=== PATIENT | male | born 1990 ===

== ENCOUNTER 2018-07-22 08:41 | Emergency (ER) | payer BC ==
--- NOTE | 2018-07-22 08:49 | UC ---
Skin Complaint HPI - HPI Summary HPI Summary: 28 y/o male presents to the urgent care c/o tick bite on lateral side of abdomen he noticed this morning when he woke up. Pt was in the read yesterday. Unsure if it was engorged. He removed it. Pt denies fever, join pains, chest pain, palpitation, HINOJOSA, abdominal pain. N/V/D. - History of Current Complaint Time Seen by Provider: 07/22/18 08:48 Stated Complaint: TICK BITE Hx Obtained From: Patient Onset/Duration: Sudden Onset, Lasting Days - 1 day, Resolved - tick removed this morning Skin Exposure Onset/Duration: Days Ago - 1 day Timing: Constant Onset Severity: Mild Current Severity: Mild Pain Intensity: 0 Pain Scale Used: 0-10 Numeric Location: Discrete - lateral side of abdomen tick bite Character: Redness Aggravating Factor(s): Touch Alleviating Factor(s): Other - tick removal Associated Signs & Symptoms: Positive: Rash - mild around tick bite Related History: Possible Reaction to: Insect - Allergy/Home Medications Allergies/Adverse Reactions: Allergies Allergy/AdvReac Type Severity Reaction Status Date / Time amoxicillin Allergy Unknown Verified 07/22/18 08:57 Reaction Details Review of Systems Constitutional: Negative Skin: Other - lateral side of adomen w/ tick bite Eyes: Negative ENT: Negative Respiratory: Negative Cardiovascular: Negative Gastrointestinal: Negative Genitourinary: Negative Motor: Negative Neurovascular: Negative Musculoskeletal: Negative Neurological: Negative Psychological: Negative Is Patient Immunocompromised?: No All Other Systems Reviewed And Are Negative: Yes PMH/Surg Hx/FS Hx/Imm Hx Previously Healthy: Yes - Pt denies PMHX - Family History Known Family History: Positive: Hypertension - Social History Occupation: Employed Full-time Lives: With Family Physical Exam - Summary Physical Exam Summary: Vital Signs Reviewed: Yes General: well developed, well nourished male sitting in the examining table w/o any apparent distress. Eyes: Positive: Conjunctiva Clear - PERRLA, EOMI ENT: Positive: Normal ENT inspection, Hearing grossly normal, Pharynx normal, TMs normal Neck: Positive: Supple, Nontender, No Lymphadenopathy Respiratory: Positive: Chest nontender, Lungs clear, Normal breath sounds Cardiovascular: Positive: RRR, No Murmur, Pulses Normal Abdomen Description: Positive: Nontender, No Organomegaly, Soft. Negative: CVA Tenderness (R), CVA Tenderness (L) Bowel Sounds: Positive: Present Musculoskeletal: Positive: Strength Intact, ROM Intact, No Edema Neurological Exam: Normal Psychological Exam: Normal Skin: Positive: rashes - Lateral side of mi abdomen with tick bite with mild surrounding erythema, non tender to palpation. tick no longer present, no swelling or drainage observed. Triage Information Reviewed: Yes Course/Dx - Course Course Of Treatment: 28 y/o male presents to the urgent care c/o tick bite on lateral side of abdomen he noticed this morning when he woke up. Pt was in the read yesterday. Unsure if it was engorged. He removed it. Pt denies fever, joint pains, chest pain, palpitation, HINOJOSA, abdominal pain. N/V/D.Hx obtained. Pt w/ Lateral side of mi abdomen with tick bite with mild surrounding erythema, non tender to palpation. tick no longer present on examination. the skin cleaned w/ alcohol swab and Bacitracin oint applied. Antibiotic prophylaxis with Doxycycline given to the patient to prevent lyme Disease.. Pt tolerated well medication. Pt advised to observe the area for the development or Erythema Migrans for upto 30 days following exposure. Advised if he develops fever or erythema Migrans to return to the clinic or PCP for further treatment . Pt's BP is elevated today advised to decrease salt in diet, monitor BP and f/u with PCP for further management. Pt understood and agreed with plan of care. - Differential Diagnoses - Skin Complaint Differential Diagnoses: Cellulitis, Poison [place], Poison [place], Tick Born Illness, Urticaria, Other - bee sting, insect bite - Diagnoses Provider Diagnoses: 1- Lateral side of abdomen tick bite. 2- elevated BP w/o Hx of HTN Discharge - Sign-Out/Discharge Documenting (check all that apply): Patient Departure - D/c home All imaging exams completed and their final reports reviewed: No Studies - Discharge Plan Condition: Stable Disposition: HOME Prescriptions: Bacitracin OINTMENT* 1 applic TOPICAL BID #1 tube Patient Education Materials: Tick Bite (ED), Low-Sodium Diet (ED) Referrals: [facility] [Outside] - 2 Weeks Josesito CLARK,Simon Zhu [Medical Doctor] - If Needed Additional Instructions: 1- Please observe the area for the development or Erythema Migrans for upto 30 days following exposure. Components of the tick saliva can cause transient erythema that should not be confused with Erythema Migrans. If you develop the bull's eye rash, fever, joint pains please return to the urgent care or f/u with your PCP or Infectious Disease DR Macdonald for further management. 2-Antibiotic prophylaxis with Doxycycline was given to you today to prevent lyme Disease. Lyme serology can be drawn in 2 weeks with your PCP to r/o Lyme disease since there is probability of negative results at early exposure. 3-Your BP is elevated today. please decrease salt in your diet, monitor BP and if it continues to be elevated please f/u with your PCP for further management 4- apply Bacitracin oint as directed around tick bite - Billing Disposition and Condition Condition: STABLE Disposition: Home - Attestation Statements Provider Attestation: Per institutional requirements, I have reviewed the chart, however, I was not consulted specifically or made aware of this patient by the midlevel provider. I did not personally evaluate, interact with , or disposition this patient
[2018-07-22 08:57] VITALS: BP 134/90
[2018-07-22] MEDS ORDERED: DOXYcycline CAP(*) 100 MG PO ONE (09:08)
== END 2018-07-22 09:20 | disposition home or self-care (01) ==
LOC: UCEAST 08:41
DX: S30.861A Insect bite (nonvenomous) of abdominal wall, initial encounter (principal); W57.XXXA Bitten or stung by nonvenomous insect and other nonvenomous arthropods, initial encounter; Y92.9 Unspecified place or not applicable; R03.0 Elevated blood-pressure reading, without diagnosis of hypertension
CPT/HCPCS: 99202; A9270-GY; G0463